=== PATIENT | male | born 1955 | race Caucasian/White ===

== ENCOUNTER 2023-03-23 08:54 | Day surgery (SDC) | payer MEDICARE ==
[~2023-03-23] VITALS: Ht 170.2 cm; Wt 90.0 kg
[~2023-03-23 08:54] MED LIST: ASPI81CH; ASPI81CH PO; ATOR10; ATOR10 PO; CHOLESTEROL MED; CITA20 PO; GLIM4 PO; INVOKANA300 MG PO; LISI20 PO; METF500 PO; OXYACE5T PO; ROSI2; RXOXYACE PO; RXPROM25 PO; TOUJEO SOL300 UNIT/1 SQ
[2023-03-23] MEDS ORDERED: METF500 (08:58)
[2023-03-23] MEDS ORDERED: FARXIGA10 MG (08:58)
[2023-03-23] MEDS ORDERED: ASPI81CH (09:13)
[2023-03-23 11:23] VITALS: BP 108/65
== END 2023-03-23 10:52 | disposition home or self-care (01) ==
LOC: ORSCSDS 08:54
PROVIDERS: Internal Medicine Gastroenterology
PROC: 0DBM8ZX Excision of Descending Colon, Via Natural or Artificial Opening Endoscopic, Diagnostic (ICD-10-PCS; principal; 2023-03-23 10:00)
DX: Z12.11 Encounter for screening for malignant neoplasm of colon (principal); K63.5 Polyp of colon; K57.30 Diverticulosis of large intestine without perforation or abscess without bleeding; Z86.010 Personal history of colon polyps; E11.9 Type 2 diabetes mellitus without complications; Z79.82 Long term (current) use of aspirin; Z79.84 Long term (current) use of oral hypoglycemic drugs; Z79.85 Long-term (current) use of injectable non-insulin antidiabetic drugs; Z79.899 Other long term (current) drug therapy; Z87.891 Personal history of nicotine dependence
CPT/HCPCS: 82947; 88305; J2704; J7120

== ENCOUNTER → 2025-06-18 | Outpatient (CLI) | payer OTHER ==
[~2025-06-18] MED LIST changes: +FARXIGA10 MG PO; +TOUJEO MAX300 UNIT/2 SC
== END ==
LOC: LAB SHORT 14:51 → LAB 14:51
DX: B35.1 Tinea unguium (principal); L60.8 Other nail disorders
CPT/HCPCS: 87102